=== PATIENT | female | born 1990 | race Two or more races ===

== ENCOUNTER 2018-08-08 16:45 | Observation (INO) | payer OTHER ==
[~2018-08-08] VITALS: Ht 167.6 cm; Wt 79.4 kg
[2018-08-08 16:50] VITALS: BP 106/71
== END 2018-08-08 19:02 | disposition home or self-care (01) | DRG 833 ==
LOC: ER 16:45 → LDRP 16:46 → ER 16:56 → LDRP 17:17 → UNDODISOB 19:02
PROVIDERS: ADMIT Specialist; ATTEND Specialist
DX: O9A.212 Injury, poisoning and certain other consequences of external causes complicating pregnancy, second trimester (principal); S50.01XA Contusion of right elbow, initial encounter; Z3A.26 26 weeks gestation of pregnancy; V49.9XXA Car occupant (driver) (passenger) injured in unspecified traffic accident, initial encounter; Y92.9 Unspecified place or not applicable; Y99.9 Unspecified external cause status
CPT/HCPCS: 59025; 76815; 81002; 99285; G0378